=== PATIENT | female | born 1985 | race Caucasian/White ===

== ENCOUNTER 2020-11-01 21:24 | Emergency (ER) | payer OTHER, SELFPAY ==
[2020-11-01 21:25] VITALS: BP 134/74; PULSE 98; RESP 18; TEMP 36.6; O2SAT 98; BMI 25.0
--- NOTE | 2020-11-01 21:38 | ED.DCSUM_ITS ---
History of Present Illness Chief Complaint: Edema Informant: Patient Narrative: 85-year-old female presenting with left leg swelling from the left knee down for the last 5 days. She states that she feels a little bit of pain in the anterior medial aspect of the upper calf. Patient has no history of DVT. She denies medical medical problems. She states that she has had swelling in her right leg in the past but no longer has this. She does not have chest pain, palpitations, shortness of breath. No history of injury or trauma. Past Medical History - Allergies and Home Meds Allergies/Adverse Reactions: Allergies amoxicillin Allergy (Verified 11/01/20 21:29) PT UNSURE OF REACTION cefaclor [From Ceclor] Allergy (Verified 11/01/20 21:29) PT UNSURE OF REACTION cephalexin [From Keflex] Allergy (Verified 11/01/20 21:29) Hives Penicillins Allergy (Verified 11/01/20 21:29) PT UNSURE OF REACTION Sulfa (Sulfonamide Antibiotics) Allergy (Verified 11/01/20 21:29) Shortness of breath lidocaine Adverse Reaction (Verified 11/01/20 21:29) PT UNSURE OF REACTION Primary Care Physician: NOT,DEFINED [NON-STAFF] - Prior records reviewed: Yes Past Medical History: None Surgical History: noncontributory Lives: Spouse/ Significant Other Alcohol: None Drugs: None Review of Systems General: Denies: Chills, Fever, Sweats Eyes: Denies: Visual changes - bilaterally, Diplopia ENT: Denies: Rhinorrhea, Sore throat Cardiovascular: Denies: Chest pain, Palpitations Respiratory: Denies: Dyspnea, Cough, Dyspnea on exertion Gastrointestinal: Denies: Abdominal pain, Nausea, Vomiting, Diarrhea, Melena, Hematochezia Genitourinary: Denies: Dysuria, Hematuria, Frequency Musculoskeletal: Reports: Swelling - Left lower leg swelling, Extremity Pain - Left lower leg pain Skin: Denies: Rash, Wounds Neurological: Denies: Headache, Weakness, Numbness Psych: Denies: Depression, Anxiety Physical Exam Vital Signs/Narrative: Vital Signs Temp Pulse Resp BP Pulse Ox 11/01/20 21:25 97.9 F 98 18 134/74 H 98 General: Well nourished, No Acute Distress Head: Normocephalic, Atraumatic Eyes: Perrl, EOMI ENT: Moist mucous membranes, No rhinorrhea Cardiovascular: Regular rate, Regular rhythm Respiratory: No distress, CTA bilaterally Extremities: Edema - 1+ pitting edema left lower extremity Skin: Normal color, No rash. Negative for: Cyanosis, Diaphoresis, Rash Neurological: Alert, Oriented x3, Cranial nerves II-XII grossly intact Psychological: Normal affect, Normal Mood Diagnostic/Tx/Re-eval - Medical Decision Making 35-year-old female presenting with left leg swelling. She does not have a h istory of DVT or trauma. She states she is very active and works out 3 times a week. She is not describe any injury. Patient had DVT study performed which was negative for DVT. Patient counseled on ice, compression, elevation. She will follow-up with her PCP to ensure resolution. Patient stable discharge at this time. Impression: 1. Left lower extremity edema ED Disposition - Plan for ED Patient: Disposition: Home or Assisted Living Instructions: ED Peripheral Edema, Unilateral Referrals: NOT,DEFINED [NON-STAFF] -
--- NOTE | 2020-11-01 21:40 | US_ITS ---
STUDY: VENOUS DOPPLER ULTRASOUND - LEFT LOWER EXTREMITY REASON FOR EXAM: Female, 35 years old. LT LOWER LEG SWELLING X 3 DAYS TECHNIQUE: Ultrasound evaluation of the deep vein system to include vasquez-scale imaging and compression was performed. Vasquez-scale imaging and Doppler sonographic evaluation, including duplex spectral analysis and qualitative color flow sonography, was performed. COMPARISON: None. FINDINGS: Common Femoral Vein: Normal compression, spontaneity and augmentation. Normal color Doppler. Common Femoral Vein/Greater Saphenous Junction: Normal compression, spontaneity and augmentation. Normal color Doppler. Deep Femoral Vein: Normal compression, spontaneity and augmentation. Normal color Doppler. Femoral Proximal: Normal compression, spontaneity and augmentation. Normal color Doppler. Femoral Middle: Normal compression, spontaneity and augmentation. Normal color Doppler. Femoral Distal: Normal compression, spontaneity and augmentation. Normal color Doppler. Popliteal Vein: Normal compression, spontaneity and augmentation. Normal color Doppler. Posterior Tibial Vein: Normal compression, spontaneity and augmentation. Normal color Doppler. Peroneal Vein: Normal compression, spontaneity and augmentation. Normal color Doppler. US/Venous Duplex Imag/Limited/Uni IMPRESSION: Normal venous Doppler ultrasound of the lower extremity. Electronically Signed: Arvin King MD at 22:35 EST , Service support ,
== END 2020-11-01 22:31 | disposition home or self-care (01) ==
PROVIDERS: Emergency Provider Student in an Organized Health Care Education/Training Program; PCP Family Medicine
DX: R60.0 Localized edema (principal); Z88.0 Allergy status to penicillin; Z88.1 Allergy status to other antibiotic agents; Z88.2 Allergy status to sulfonamides; M79.89 Other specified soft tissue disorders
CPT/HCPCS: 93971; 99282; A4216

== ENCOUNTER → 2020-11-03 14:02 | Outpatient (CLI) | payer OTHER, SELFPAY ==
[2020-11-01 21:25] VITALS: BMI 25.0
[2020-11-03 15:45] LABS: Absolute Lymphocyte Count 1.62 X10^3/uL (0.83-4.51); Absolute Neutrophil Count 3.6 X10^3/uL (2.0-7.7); Basophil# 0.03 X10^3/uL; Basophil% 0.5 % (0-1); Eosinophil# 0.09 X10^3/uL; Eosinophils% 1.5 % (0-5); Hematocrit 39.3 % (37-47); Hemoglobin 13.2 g/dL (12.0-15.0); Lymphocyte # 1.62 X10^3/ul (4.0); Lymphocyte % 27.8 % (19-41); Mean Corp Hgb Conc 33.6 g/dL (32-36); Mean Corpuscular Hgb 32.2 pg (27.0-32.0); Mean Corpuscular Volume 95.9 fL (81-99); Mean Platelet Vol. 9.2 fl (6.2-12.0); Monocyte# 0.44 X10^3/uL; Monocyte% 7.6 % (0-10); NRBC Flagged by Analyzer 0 % (0-5); Neutrophil # 3.59 X10^3/uL (2.7-7.7); Neutrophil % 61.7 % (47-70); Platelet Count 276 K/mm3 (150-450); RBC Distribution Width CV 11.3 % (11.6-14.6); RBC Distribution Width SD 39.9 fl (35.1-43.9); White Blood Count 5.8 K/mm3 (4.4-11.0)
[2020-11-03 16:16] LABS: ALB/GLOB Ratio 1.1 RATIO (0.9-2.4); AST(SGOT) 12 U/L (15-37); Alanine Aminotransfer ALT/SGPT 22 U/L (13-56); Albumin, Serum 3.7 g/dL (3.2-5.0); Alkaline Phosphatase 71 U/L (45-117); Anion Gap 6 (5-15); BUN 19 mg/dL (7-18); BUN/Creat Ratio 24.3 RATIO (10-20); Calcium,Total 8.4 mg/dL (8.5-10.1); Chloride 105 mmol/L (98-107); Creatinine, Serum 0.78 mg/dL (0.55-1.02); EST Glomerular Filtration Rate 88 mL/min (>60); Est Glom Filt Rate - Afr Amer 106 mL/min (>60); Globulin 3.3 g/dL (2.2-4.2); Glucose 107 mg/dL (74-106); Potassium 3.5 mmol/L (3.5-5.1); Sodium Level 139 mmol/L (136-145); Thyroid Stim Hormone (TSH) 0.74 uIU/mL (0.358-3.74)
== END ==
PROVIDERS: PCP Family Medicine; Visit Provider Family Medicine
DX: M79.89 Other specified soft tissue disorders (principal)
CPT/HCPCS: 36415; 80053; 84443; 85025

== ENCOUNTER → 2020-11-08 14:23 | Outpatient (CLI) | payer OTHER, SELFPAY ==
[2020-11-01 21:25] VITALS: BMI 25.0
--- NOTE | 2020-11-08 14:25 | US_ITS ---
STUDY: ULTRASOUND OF THE FEMALE PELVIS - COMPLETE REASON FOR EXAM: Female, 35 years old. LT LEG SWELLING LMP: 11/02/2020 TECHNIQUE: Transabdominal real-time exam with grayscale image documentation. TECHNICAL QUALITY: Adequate. COMPARISON: None. FINDINGS: The uterus is anteverted and is in a midline position. The uterus measures 8.5 x 4.5 x 3.4 cm. Normal uterine cervix. The endometrium measures 4 mm in thickness, and is hyperechoic. There is no demonstrated endometrial mass. There is no demonstrated myometrial mass. I.U.D. - The patient does not have an I.U.D. The right ovary is visualized. The right ovary measures 2.6 x 2.3 x 1.8 cm. There is no right ovarian cyst or ovarian mass. There is no visualized right adnexal mass or complex lesion. There is normal arterial and normal venous vascularity. The left ovary is visualized. The left ovary measures 2.5 x 2.6 x 2.4 cm. There is no left ovarian cyst or ovarian mass. There is no visualized left adnexal mass or complex lesion. There is normal arterial and normal venous vascularity. There is no fluid in the cul-de-sac. The pre void volume of the bladder was 360 ml. Polycystic ovary disease: No. US/Pelvic (Non ) IMPRESSION: Normal female pelvis. Electronically Signed: Poppy Rojo MD at 17:06 EST , Service support ,
== END ==
PROVIDERS: PCP Family Medicine; Referring Provider Family Medicine; Visit Provider Family Medicine
DX: M79.89 Other specified soft tissue disorders (principal)
CPT/HCPCS: 76856

== ENCOUNTER → 2020-11-24 14:14 | Outpatient (CLI) | payer OTHER, SELFPAY ==
[2020-11-01 21:25] VITALS: BMI 25.0
--- NOTE | 2020-11-24 14:20 | CT_ITS ---
STUDY: CT LEFTLOWER EXTREMITY WITHOUT CONTRAST REASON FOR EXAM: Female, 35 years old. LYMPHEDEMA, LUMP ON LT LOWER CALF, LEG SWELLING RADIATION DOSAGE (If Supplied By Facility): CTDIvol = ( 15.35 ) mGy, DLP = ( 1501.26 ) mGycm TECHNIQUE: Thin section transaxial imaging of the ankle was obtained, with sagittal and coronal reconstructed images. Individualized dose optimization techniques were used for this CT. COMPARISON: None. Hip findings: Normal femoral head, neck, intertrochanteric region and visualized proximal femur. Normal acetabulum. Normal hip joint. Normal visualized superior and inferior pubic rami and ischial tuberosities. Normal hip joint without articular joint space narrowing. Normal acetabulum. Normal labrum. Normal femoral head. Normal femoral neck and intratrochanteric region. Normal gluteus minimus, medius and iliopsoas tendons and distal insertions. Normal superior and inferior pubic rami. Normal pubic symphysis. Normal ischial tuberosity. Normal origin of the hamstring tendons. Normal visualized iliac wing, sacroiliac joint, and sacral ala. Normal visualized soft tissue structures of the pelvis. Knee findings: Normal medial femoral condyle and medial tibial plateau. There is preservation of the articular joint space of the medial knee compartment. Normal lateral femoral condyle and lateral tibial plateau. There is preservation of the articular joint space of the lateral knee compartment. Normal proximal tibiofibular articulation. There is no joint effusion. There is no demonstrated abnormal enhancement. The quadriceps tendon is grossly normal. The patellar tendon is grossly normal. Normal Hoffa''s fat pad. No suspicious masses. A 1 cm lymph node is present in the subcutaneous fat of the posterior medial aspect of the upper one third catheter/proximal one third tibial shaft region. Mild subcutaneous edema is present on the medial side of the calf. No focal fluid collections are seen. No intramuscular abscess. Ankle findings: Normal visualized distal tibia and fibula. Normal tibiotalar articulation and talar dome. Normal talus, calcaneus, navicular and cuboid tarsal bones. Normal subtalar, talonavicular and calcaneocuboid articulations. Normal navicular-cuneiform, cuneiform tarsal bones and intercuneiform articulations. Normal tarsometatarsal articulations and visualized metatarsi. Mild subcutaneous edema is present around the ankle and visualized aspects of the foot. CT/Extremity Lower WITH Contrast IMPRESSION: 1. No suspicious masses. 2. A 1 cm lymph node is present in the subcutaneous fat of the posterior medial aspect of the upper one third catheter/proximal one third tibial shaft region. Mild subcutaneous edema is present on the medial side of the calf. No focal fluid collections are seen. No intramuscular abscess. Electronically Signed: Cornell Nguyen MD at 23:29 EST , Service support ,
== END ==
PROVIDERS: PCP Family Medicine; Referring Provider Family Medicine; Visit Provider Family Medicine
DX: I89.0 Lymphedema, not elsewhere classified (principal)
CPT/HCPCS: 73701; Q9967

== ENCOUNTER 2020-12-26 16:20 | Outpatient (RCR) | payer OTHER, SELFPAY ==
[2020-12-26 14:33] VITALS: BMI 25.9
[2020-12-26 16:28] LABS: Bacteria 0 SEEN /hpf (None Seen); Mucous, Urine 0 SEEN /hpf (<or=2+); Red Blood Cells-Urine 0 SEEN /hpf (0-5); Squamous Epithelial Cells - UA 0 SEEN /hpf (5-10); White Blood Cells 0 SEEN /hpf (0-5)
[2020-12-26 17:05] LABS: Color, Urine Yellow (Yellow); Glucose, Dipstick Normal (Normal); Ketone-Dipstick Negative (Negative); Leukocyte Esterase-Dipstick Negative /ul (Negative); Nitrite-Dipstick Negative (Negative); Occult Blood-Urine Negative /ul (Negative); Protein-Dipstick Negative (Negative); Urine Bilirubin Dipstick Negative (Negative); Urine Clarity Clear (Clear); Urine Urobilinogen Normal (Normal)
== END 2020-12-26 18:00 | disposition home or self-care (01) ==
LOC: LAB 16:20
PROVIDERS: Referring Provider Internal Medicine; Visit Provider Internal Medicine
DX: R35.8 Other polyuria (principal); R60.0 Localized edema
CPT/HCPCS: 81001

== ENCOUNTER 2021-01-16 13:00 | Outpatient (RCR) | payer OTHER, SELFPAY ==
[2020-12-26 14:33] VITALS: BP 124/67; PULSE 67; RESP 18; TEMP 36.9
--- NOTE | 2020-12-29 12:35 | PN.PCM_ITS ---
(1) Edema of both lower legs Status: Chronic Code(s): R60.0 - Localized edema (2) Venous (peripheral) insufficiency Status: Suspected Code(s): I87.2 - Venous insufficiency (chronic) (peripheral) Type of Wound Date of Service: 01/04/21 Chief Complaint: Chronic BL pitting edema of both legs ever since she had her second child. History of Wound: Di presents to the [facility] today to be evaluated for lymphedema. She recently saw a physician at [facility] wbout edema of her legs which has been presents since .He told her she had lymphedema and he wanted t o enroll her in a study he was doing. He wanted to do a test where she would have needles placed in her toes and contrast injected. She is seeking a second opinion. The edema is pitting and is worst at the end of the day. It increases when the weather is hot and when she is on her feet all day. It goes down over night when her legs are elevated. She is wearing tight compression stockings to help with the edema. Her legs feel tight and painful at the end of the day. She denies any hx of kidney disease. She also denies any hx of DVT/VTE. There is no FH of VTE or kidney disease/nephrotic S. She works out regularly at [employer] and she is in good physical condition. She tells me that her legs swelled during her . She has not had a UA done. She denies orthopnea, dyspnea on exertion, palpitations, chest pain, flank pain, dysuria, calf pain other than at the end of the day. - Physical Exam Vital Signs Temp Pulse Resp BP 98.5 F 67 18 124/67 H 12/26/20 14:33 12/26/20 14:33 12/26/20 14:33 12/26/20 14:33 General: Alert, Oriented x3, Cooperative, No apparent distress, Well developed, Well nourished, - HEENT: Atraumatic, PERRLA, EOMI, Normocephalic Oral: Moist Mucosa, No Gingival or Mucosal Lesions/ Ulcerations Neck: Supple, No JVD, Trachea Midline, Thyroid Normal Size and Texture, - - Carotids have brisk upstroke and good pulse volume bilaterally Lungs: Clear to auscultation, Normal air movement, No rhonchi, No wheeze, No rales - Not tachypneic, no conversational dyspnea Cardiovascular: Regular rate, Regular Rhythm, Normal S1, Normal S2, No murmurs, No rub noted, No Gallop Abdomen: Bowel Sounds Present, Soft, Non Tender, Non-Distended Extremities: No clubbing, No cyanosis, Edema, Peripheral Pulses Normal, - - ankle and pretibial edema of both lower extremities and it is pitting BL. Skin: No rashes, No breakdown, - - No wounds Wound Measurements and Assessment WC - Nurse 1 - General Ulcer Measurement Start: 12/26/20 14:33 Freq: Status: Active Protocol: Activity Type Activity Date Activity User E-Sign Co-Sign Detail Recorded Client Recorded Date Recorded By Document 12/26/20 14:33 DL [id number] 12/26/20 14:56 DL 12/26/20 14:33 Wound Center Nurse 1 [Ulcer Assessment] Lymphedema -Current Size (cm) - Length 0 -Current Size (cm) - Width 0 -Current Size (cm) - Depth 0 -Total Square Cm 0 -Photo Taken Yes -Exudate Amt None Present -Granulation Amt Large (67-100%) -Granulation Quality Linn -Necrosis Amt None Present (0 %) -Structure Exposed N/A -Texture (Amena-wound Skin Appearance) No Abnormality -Moisture (Amena-wound Skin Appearance No Abnormality ) -Color (Amena-wound Skin Appearance) No Abnormality -Temperature (Amena-wound Skin No Abnormality Appearance) (Pt Warm) -Tenderness on Palpation (Amena-wound No Skin Appearance) -Foul Odor after Cleansing No [Edema Assessment] -Right Calf (cm) 34.4 -Right Ankle (cm) 21 -Left Calf (cm) 34.5 -Left Ankle (cm) 22.5 WC - Nurse 2 - General Ulcer CM Notes Start: 12/26/20 14:33 Freq: Status: Active Protocol: Activity Type Activity Date Activity User E-Sign Co-Sign Detail Recorded Client Recorded Date Recorded By Document 12/26/20 15:35 MW [id number] 12/26/20 15:43 MW 12/26/20 15:35 Wound Center Nurse 2 [Procedure/Treatment] Lymphedema -Time 15:41 -Correct Patient Yes -Correct Side, Site, Position Yes -Correct Procedure Yes -Procedure Performed No [See Physician Procedure note for Specifics] Pain Scale: 0-10 Numeric [Pain] -Is Patient Pain Free? Yes - Nurse 3 - General Ulcer D/C NN Start: 12/26/20 14:33 Freq: Status: Active Protocol: Activity Type Activity Date Activity User E-Sign Co-Sign Detail Recorded Client Recorded Date Recorded By Document 12/26/20 15:50 MW [id number] 12/26/20 16:03 MW 12/26/20 15:50 -Is Patient Pain Free? Yes Teaching: Wound Center [Wound Center Education] (Items with an * have Printed Materials Available- Please identify what is given to patient under the Teaching materials given to patient and caregiver Section. Diagnostic Tests Ordered -Person Taught Patient -Teaching Method Discussion -Response to teaching Verbalize understanding - Visit Discharge [Visit Discharge Information] -Discharge Condition Stable -Ambulatory Status Ambulatory -Transportation Private Auto -Accompanied by self -Medication Reconcilliation completed No & provided to patient/care provider -Clinical Summary of Care Provided Yes Debridement Note Post-Debridement Measurements/Treatment - Nurse 2 - General Ulcer CM Notes Start: 12/26/20 14:33 Freq: Status: Active Protocol: Activity Type Activity Date Activity User E-Sign Co-Sign Detail Recorded Client Recorded Date Recorded By Document 12/26/20 15:35 MW [id number] 12/26/20 15:43 MW 12/26/20 15:35 Wound Center Nurse 2 Lymphedema -Time 15:41 -Correct Patient Yes -Correct Side, Site, Position Yes -Correct Procedure Yes -Procedure Performed No Pain Scale: 0-10 Numeric Is Patient Pain Free? Yes - Nurse 3 - General Ulcer D/C NN Start: 12/26/20 14:33 Freq: Status: Active Protocol: Activity Type Activity Date Activity User E-Sign Co-Sign Detail Recorded Client Recorded Date Recorded By Document 12/26/20 15:50 MW [id number] 12/26/20 16:03 MW 12/26/20 15:50 Is Patient Pain Free? Yes Teaching: Wound Center Diagnostic Tests Ordered -Person Taught Patient -Teaching Method Discussion -Response to teaching Verbalize understanding - Visit Discharge Discharge Condition Stable Ambulatory Status Ambulatory Transportation Private Auto Accompanied by self Medication Reconcilliation completed & No provided to patient/care provider Clinical Summary of Care Provided Yes Assessment/Plan Assessment: 1. Chronic bilateral pitting edema both lower extremities. 2. Suspected venous insufficiency Plan: 1. Continue use of compression stockings, salt restriction, elevation of her legs when possible. 2. Check a UA looking for proteinuria. 3. Schedule for arterial studies and venous studies of both lower extremities. 4. Return to clinic following completion of the arterial and venous studies. Office Visits / Consults: [id number] OV L3 Est
--- NOTE | 2021-01-10 12:47 | ART_ITS ---
Reason For Study: Lymphedema Procedure A bilateral lower extremity continuous wave Doppler with analog waveform analysis,segmental pressures,and ankle brachial indexes without exercise. Left Segmental Pressures Left brachial= 108mmHg. Left posterior tibial artery = 148mmHg. Left dorsalis pedis artery = 147mmHg. Right Segmental Pressures Right brachial= 112mmHg. Right posterior tibial artery = 137mmHg. Right dorsalis pedis artery = 139mmHg. Indices The right ankle brachial index by the posterior tibial artery is 1.22. The right ankle brachial index by the dorsalis pedis is 1.24. The left ankle brachial index by the posterior tibial artery is 1.32. The left ankle brachial index by the dorsalis pedis is 1.31. Interpretation Summary Triphasic Doppler waveforms are noted at ankle level bilaterally. Pulse-volume recordings appear satisfactory at all levels bilaterally, including low-thigh, calf, ankle, and digital levels. Resting ankle-brachial indices are normal bilaterally. There is no evidence of significant arterial occlusive disease in the lower extremities bilaterally. Ordering Physician: Marysol Jamil Referring Physician: Marysol Jamil Performed By: Lavern Ji RDCS/RVT
--- NOTE | 2021-01-10 12:47 | VDLE_ITS ---
Reason For Study: Lymphedema RIGHT LEFT GSV is normal. GSV is normal. CFV is compressible, spontaneous, phasic, CFV is compressible, spontaneous, phasic, competent and demonstrates normal competent, and demonstrates normal augmentation. augmentation. FV is compressible, spontaneous, phasic, FV is compressible, spontaneous, phasic, competent and demonstrates normal competent and demonstrates normal augmentation. augmentation. POP V is compressible, spontaneous, phasic, POP V is compressible, spontaneous, phasic, competent and demonstrates normal competent and demonstrates normal augmentation. augmentation. T/P Trunk is compressible. T/P Trunk is compressible. PTV is compressible. PTV is compressible. RT PerV is compressible. LT PerV is compressible. SFJ is competent and measures 0.41cm x 0.43 SFJ is competent and measures 0.47cm x 0.41 cm. cm. GSV proximal thigh measures 0.44cm x 0.45 cm. GSV proximal thigh measures 0.41cm x 0.42 cm. GSV at knee measures 0.32cm x 0.32 cm. GSV at knee measures 0.36cm x 0.36 cm. GSV is competent throughout. GSV is competent throughout. SSV proximal calf is competent and measures SSV proximal calf is competent and measures 0.21cm x 0.22 cm. 0.39cm x 0.42 cm. Procedure Exam performed in department. Interpretation Summary Deep veins of the lower extremities are bilaterally patent and compressible segmentally. There is no evidence of deep vein thrombosis on either side. Valvular competence appears intact within the proximal deep venous systems bilaterally. The great saphenous veins appear bilaterally patent and compressible segmentally. Sapheno-femoral junctions are bilaterally competent . Valvular competence appears to be intact segmentally within the great saphenous veins bilaterally. Small saphenous veins are patent and competent bilaterally. Ordering Physician: Marysol Jamil Referring Physician: Claribel Guevara Performed By: Lavern Ji, TRELL, RVT
[2021-01-16 13:14] VITALS: BP 111/72; PULSE 78; RESP 18; TEMP 37.6; BMI 25.9
--- NOTE | 2021-01-16 15:53 | PCM.WC.PN ---
(1) Edema of both lower legs Status: Chronic Code(s): R60.0 - Localized edema (2) Venous (peripheral) insufficiency Status: Ruled-out Code(s): I87.2 - Venous insufficiency (chronic) (peripheral) (3) Lymphedema Status: Acute Code(s): I89.0 - Lymphedema, not elsewhere classified Type of Wound Date of Service: 01/16/21 Chief Complaint: Chronic BL pitting edema of both legs ever since she had her second child. History of Wound: Di presents to the [facility] today to be evaluated for lymphedema. She recently saw a physician at [facility] wbout edema of her legs which has been presents since .He told her she had lymphedema and he wanted to enroll her in a study he was doing. He wanted to do a test where she would have needles placed in her toes and contrast injected. She is seeking a second opinion. The edema is pitting and is worst at the end of the day. It increases when the weather is hot and when she is on her feet all day. It goes down over night when her legs are elevated. She is wearing tight compression stockings to help with the edema. Her legs feel tight and painful at the end of the day. She denies any hx of kidney disease. She also denies any hx of DVT/VTE. There is no FH of VTE or kidney disease/nephrotic S. She works out regularly at [employer] and she is in good physical condition. She tells me that her legs swelled during her . She has not had a UA done. She denies orthopnea, dyspnea on exertion, palpitations, chest pain, flank pain, dysuria, calf pain other than at the end of the day. Progress of Wound: There was no evidence of deep vein thrombosis. Valvular competence appeared intact within the proximal deep vein system bilaterally. The venous Doppler studies showed the deep veins of the lower extremities to be bilaterally patent and compressible segmentally. Arterial study showed no evidence of significant arterial occlusive disease in the lower extremities bilaterally. She had a lymph study at [facility] and there was no tracer present in the groin BL indicating decreased lymphatic flow. She has an appt to follow up at [facility] in the next 2 weeks. She denies any fever, chills or sweats. She continues to shave her legs and has cut her self a few times. She continues to work out regularly and she is roman catholic about wearing the compression hose. She has never been fitted for compression hose. She has seen the PT at [facility] that treats lymphedema but she is not doing manual lymph pumping. The therapist told her to come back if she wants to learn how to do the MLP. She is using Cerave to moisturize her legs. - Physical Exam Vital Signs Temp Pulse Resp BP 99.6 F H 78 18 111/72 01/16/21 13:14 01/16/21 13:14 01/16/21 13:14 01/16/21 13:14 Wound Measurements and Assessment WC - Nurse 1 - General Ulcer Measurement Start: 12/26/20 14:33 Freq: Status: Active Protocol: Activity Type Activity Date Activity User E-Sign Co-Sign Detail Recorded Client Recorded Date Recorded By Document 01/16/21 13:14 DL [id number] 01/16/21 13:17 DL 01/16/21 13:14 Wound Center Nurse 1 [Edema Assessment] -Right Calf (cm) 34 -Right Ankle (cm) 20.3 -Left Calf (cm) 34 -Left Ankle (cm) 21.3 The swelling originally started in the RLE and in October the left LE became edematous as well. The swelling is pitting. She denies any hx of lymphedema in her family. The swelling started after . Swelling improves overnight with elevation. Swelling increases with hot days in the summer. She is tearful today. She has done a lot of reading about lymphedema and she did not want to hear she has Lymphedema. She knows that it can be progressive. She also knows that no treatment has been shown to be universally effective. She is aware that options include compression stockings, manual lymphatic pump, intermittent pneumatic pump, Tacrolimus topically, surgery. Surgery is the most recent tx. She does not know what the treatment will be in the research study being done at the [facility]. She is making a list of questions to ask at her next appt at [facility]. Debridement Note Post-Debridement Measurements/Treatment WC - Nurse 2 - General Ulcer CM Notes Start: 12/26/20 14:33 Freq: Status: Active Protocol: Activity Type Activity Date Activity User E-Sign Co-Sign Detail Recorded Client Recorded Date Recorded By Document 12/26/20 15:35 MW [id number] 12/26/20 15:43 MW 12/26/20 15:35 Wound Center Nurse 2 Lymphedema -Time 15:41 -Correct Patient Yes -Correct Side, Site, Position Yes -Correct Procedure Yes -Procedure Performed No Pain Scale: 0-10 Numeric Is Patient Pain Free? Yes - Nurse 3 - General Ulcer D/C NN Start: 12/26/20 14:33 Freq: Status: Active Protocol: Activity Type Activity Date Activity User E-Sign Co-Sign Detail Recorded Client Recorded Date Recorded By Document 12/26/20 15:50 MW [id number] 12/26/20 16:03 MW 12/26/20 15:50 Is Patient Pain Free? Yes Teaching: Wound Center Diagnostic Tests Ordered -Person Taught Patient -Teaching Method Discussion -Response to teaching Verbalize understanding WC - Visit Discharge Discharge Condition Stable Ambulatory Status Ambulatory Transportation Private Auto Accompanied by self Medication Reconcilliation completed & No provided to patient/care provider Clinical Summary of Care Provided Yes No debridement was completed today Assessment/Plan Active Problems Edema of both lower legs (Chronic) Lymphedema (Acute) Assessment: 1. 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 2. venous insufficiency and nephrotic S. Have been ruled out. Plan: 1. Continue use of compression stockings, salt restriction, elevation of her legs when possible. Do not try diuretics. I recommended she go to [facility] and be measured for compression stockings and use the highest compression she can tolerate. 2. Return to [facility] at [facility] and have her instruct in Manual lymphatic pumping/wrapping. 3. Do not shave legs and avoid injuries to the legs to prevent injury that can lead to infection and worsening lymphedema. 4. Avoid hot tubs, hot showers, hot baths, hot climates. 5. Continue the Cerave twice a day to keep the legs well moisturized so they do not crack open. If she gets an opening in the skin of the LE's and it becomes red, warm to touch, more swollen or painful go to a doctor and get antibiotics EMANI. 6. Keep follow up appt at the [facility]. 7. Keep weight WNL for height and continue regular exercise. 8. I gave her my cell phone number and asked her to call me if she had questions or there was anything we could do to help her. Office Visits / Consults: [id number] OV L2 Est
== END 2021-01-24 23:59 ==
LOC: WC 13:00
PROVIDERS: PCP Family Medicine; Referring Provider Internal Medicine; Visit Provider Internal Medicine
DX: I89.0 Lymphedema, not elsewhere classified (principal); R60.0 Localized edema
CPT/HCPCS: 93923; 93970; 99203; 99213; G0463

== ENCOUNTER 2021-01-23 14:00 | Outpatient (RCR) | payer OTHER, SELFPAY ==
--- NOTE | 2020-12-12 09:31 | HP.OTEVAL_ITS ---
Patient's Visit Information RICHARD GILLESPIE is a 35 year old F, referred to Occupational Therapy by Dr. Claribel Guevara MD, with a diagnosis of LE lymphedema. Date of Evaluation: 12/05/20 Occupational Therapist: Chetna Gomez, LUIS CARLOS/Yamila, CHT - Subjective This 35 year old female was seen for OT eval with dx of lymphedema-. swelling has been a problem for a while. pt states while with her first child she had swelling (child is 11 years old now) pt states while in the hospital her leg swelling went down and stayed down until she got with her. 2nd (child now 8 years) swelling did not go way- pt is using compression socks and will use an michael wrap and put smaller sized shoes on in attempts to keep swelling down. Pt is very active and participates in cross fit. - Lymphedema (Circumferential Measure) Mid-foot: right 23cm left 22.5cm Ankle: right 23.5cm left 23 cm Lower calf: right 23cm left 27c, Largest calf: right 35cm left 36cm Below knee: right 31cm left 32cm - Lower Limb Functional Index Lower Extremity Functional Score: 80 - Goals Demonstrate a 20% reduction in edema by d/c: Yes Demonstrate adequate knowledge of self-bangaging by 1st week: Yes Demonstrate adequate knowledge of self-massage by 2nd week: Yes Demonstrate adequate knowledge skin care/prec by 2nd week: Yes Demonstrate adequate knowledge therapeutic exercises by d/c: Yes Select approp compression garment w/donning/care/wear by d/c: Yes Voice need to replace compression garment every 4-6mo by dc: Yes - Rehabilitation General Assessment: Pt demo with primary lymphedema stage II. Pt demo a need for skilled OT services to ed. pt on lymphedema mtg. Pt is mtg with compression socks and wraps- Therapist ed pt on alternatives to mtg her swelling, skin care and beneficial ex. pt was receptive to compression alternatives and possibly using her compression socks while exercising. Pt demo understanding of compression garment use and HEP. pt may benefit from compression pump to assist in mtg as this has been difficult for pt to mtg the last 11 years. Rehabilitation Potential: Questionable - Anticipated Interventions Education re Diagnosis, Manual Lymph Drainage, Education re Life-long lymphedema Management, Education re Self-Bandaging Techniques, Education re Skin Care and Precautions, Education re Self Massage Techniques, Education re Correct Donning Tech,Care&Wearing Sched Comp Garments, Home Program - Visit Plan TEXT: Thank you for the opportunity to evaluate your patient. For Medicare and Medicare HMO plans, please review the plan of care and approve it. It will need to be FAXED BACK to us at [phone] for Medicare purposes. Please let me know if there are questions or concerns regarding this plan of care. Physician Signature: Date :
--- NOTE | 2021-04-04 11:55 | HP.OT.NRP ---
RICHARD GILLESPIE was seen in my office for initial evaluation on 12/05/20. The following Plan of Care was established for this patient: Anticipated Interventions: Education re Diagnosis, Manual Lymph Drainage, Education re Life-long lymphedema Management, Education re Self-Bandaging Techniques, Education re Skin Care and Precautions, Education re Self Massage Techniques, Education re Correct Donning Tech,Care&Wearing Sched Comp Garments, Home Program This patient was last seen in our office 01/23/21. Pertinent comments regarding their Occupational therapy will appear below: pt was seen for 2 OT visits with dx of lymphedema. pt demo understanding of using her compression garments, self manual lymph drainage massage and exercises to stimulate circulation. pt has not returned and at last visit therapist felt pt would benefit from home lymphedema pump as the flexitouch. Due to time lapse in therapy services pt d/c at this time. At this point I will be discontinuing this patient from occupational therapy. I would be happy to see this patient again in the future if found appropriate by the physician. Thank you! Chetna Gomez, OTR/L, CHT
== END 2021-01-23 19:00 | disposition home or self-care (01) ==
LOC: OT 14:00
PROVIDERS: PCP Family Medicine; Referring Provider Family Medicine; Visit Provider Family Medicine
DX: I89.0 Lymphedema, not elsewhere classified (principal)
CPT/HCPCS: 97140; 97166

== ENCOUNTER → 2021-08-16 11:58 | Outpatient (CLI) | payer OTHER, SELFPAY ==
[2021-08-16 15:44] LABS: Absolute Lymphocyte Count 1.73 X10^3/uL (0.83-4.51); Absolute Neutrophil Count 3.6 X10^3/uL (2.0-7.7); Basophil# 0.05 X10^3/uL; Basophil% 0.8 % (0-1); Eosinophil# 0.07 X10^3/uL; Eosinophils% 1.2 % (0-5); Hematocrit 40.5 % (37-47); Hemoglobin 13.6 g/dL (12.0-15.0); Lymphocyte # 1.73 X10^3/ul (0.83-4.51); Lymphocyte % 28.6 % (19-41); Mean Corp Hgb Conc 33.6 g/dL (32-36); Mean Corpuscular Volume 95.3 fL (81-99); Mean Platelet Vol. 9.5 fl (6.2-12.0); Monocyte# 0.58 X10^3/uL; Monocyte% 9.6 % (0-10); NRBC Flagged by Analyzer 0 % (0-5); Neutrophil # 3.56 X10^3/uL (2.7-7.7); Platelet Count 266 K/mm3 (150-450); RBC Distribution Width CV 11.4 % (11.6-14.6); RBC Distribution Width SD 39.7 fl (35.1-43.9); Red Blood Count 4.25 M/mm3 (4.2-5.4)
[2021-08-16 15:53] LABS: Anion Gap 5 (5-15); BUN 22 mg/dL (7-18); BUN/Creat Ratio 24.6 RATIO (10-20); Calcium,Total 9.4 mg/dL (8.5-10.1); Chloride 107 mmol/L (98-107); Creatinine, Serum 0.89 mg/dL (0.55-1.02); EST Glomerular Filtration Rate 75 mL/min (>60); Est Glom Filt Rate - Afr Amer 91 mL/min (>60); Glucose 98 mg/dL (74-106); Potassium 5.2 mmol/L (3.5-5.1); Sodium Level 137 mmol/L (136-145)
== END ==
PROVIDERS: PCP Family Medicine; Referring Provider Family Medicine; Visit Provider Family Medicine
DX: Z01.818 Encounter for other preprocedural examination (principal)
CPT/HCPCS: 36415; 80048; 85025

== ENCOUNTER 2021-09-18 09:00 | Outpatient (RCR) | payer OTHER, SELFPAY ==
--- NOTE | 2021-05-09 08:18 | HP.PTEVAL_ITS ---
Patient's Visit Information RICHARD GILLESPIE is a 36 year old F referred to Physical Therapy by Yohan Patel PA-C with a diagnosis of Right Elbow. Date of Evaluation: 05/09/21 Physical Therapist: Stacy Celaya DPT - Visit Plan Frequency: 2x /Week Duration: 4 Weeks Plan: Focus on ROM only until return to [facility]- Paraffin as modality - Subjective Patient reports that she broke her elbow- obstacle course racing- 8 foot fall- 2.5 weeks ago. Finished the race and a few days later they made her go to the [facility]- had x-ray and MRI- of the elbow- Lig and tendon sprain and strain- and a broken bone. The pain is along the medial portion of the forearm and could not move the ring and pinky fingers. Humerus is broken and medial epicondyle was displaced (x-ray) and but is healing and the lateral condyle (MRI) had a contusion with small fracture. Had a hard cast and sling that was removed on Friday and put her in the brace. The pain is getting better. Worst: 2/10 Agg: when she takes her brace off and bend it in a funky way- reaching over her head but thats better. Eases: Ibuprofen Best: 0/10. Describes the pain as sharp shooting- did have some dull ache but thats improving. The pain is along the forearm on the medial side. Right hand dominate. Does have decreased finger dexterity of the pinky and ring finger and hadoop infrastructure architect strength. No radiating pain- No SIMENTAL, blurred vision, dizziness or lightheadness. Very activity- Crossfit- 4 days a week at [facility]- was told no Crossfit- she is working out her legs and core- she is modifying and doing legs, cardio and core. 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 Goes back to May 30- ROM only for 4 weeks. Sleep: not disturbed at this point. Brace all the time including sleeping. Brace is unlocked. PMHx: lymphedema bilateral LE (compression stockings), following up with plastic surgeons for her LE. Meds: none. - Objective Posture: FH, RS- guarding of the right UE- can correct with verbal cues but does not maintain. Palpation: tender along medial epicondyle and posterior elbow. ROM: Shoulder: WFL, Elbow: Flexion: 115 degrees, Extn: 10 degrees from neutral, Supination: full, Pronation: 30 degrees- pain at all end ranges but empty end feel. Wrist: WFL. Strength: Elbow/Shoulder: not tested, Drum Stenciler: Left: 80, Right: 60 Pinch: Right: 9 Left: 10 all in lbs of force. Sensation: WFL - Goals Goal 1:: Patient will be I with HEP and progression Goal Time Frame: 4-6 Weeks Goal 2:: Patient will demo full AROM of the elbow Goal Time Frame: 4-6 Weeks Goal 3:: Patient will maintain proper posture t/o tx session to demo increased scap s/s Goal Time Frame: 4-6 Weeks - Rehabilitation Potential Physical Therapy Diagnosis: Patient presents s/p fall with elbow and humeral fractures- leading to decreased ROM, strength and muscular endurance leading to poor posture and increased pain and inability to perform ADL's. Rehabilitation Potential: Fair - Anticipated Interventions Patient/Client Instruction: Educate patient on: Benefits of Fitness Program Therapeutic Exercise to Include: Strength training, Endurance training, Coordination, Body mechanics, Postural training, Flexibilty training, Neuromotor development, Passive ROM, Active ROM, Dynamic Lumbar Stabilization, Scapular Strength/Stabilization Comment: as per MD recommendation TENS: Yes Cryotherapy (ice pack, ice massage): Yes Thermo therapy (hot pack): Yes Ultrasound (thermal/non thermal): No Paraffin bath: Yes Thank you for the opportunity to evaluate your patient. For Medicare and Medicare HMO plans, please review the plan of care and approve it. It will need to be FAXED BACK to us at [phone] for Medicare purposes. For Medicare only, by signing this I certify the plan of care. Please let me know if there are questions or concerns regarding this plan of care. Physician Signature: Date:
--- NOTE | 2021-05-29 10:01 | HP.PTREVAL ---
Yohan Patel PA-C, It has been my pleasure to treat RICHARD GILLESPIE over the last 6 visits for Right Elbow. Please see the progress note below for an update on the physical therapy plan of care! Subjective: Has stopped wearing the brace on Friday- due to feeling like it was limiting her ROM- does wear it when she was riding a bike and the gym. Is not sleeping with the brace. Goes back to [place] on Friday- is able to carry a little bucket in the barn. No more than 4-5/10 pain. Objective/Function: Posture: good throughout. Palpation: tender along medial epicondyle and posterior elbow. ROM: Shoulder: WFL, Elbow: Palm Up: 130 degrees Hammer Curl: 145 degrees Extn: 5 degrees from neutral, Supination: full, Pronation: full Wrist: WFL. Strength: Elbow/Shoulder: not tested, Deputy Manager: Left: 65, Right: 60 Pinch: Right: 10 Left: 11 all in lbs of force. Sensation: WFL Plan Plan: 05/29/2021: Goes to [place] Friday- continue current POC until then- possible progression as allowed by MD. Focus on ROM only until return to MD (june 01) Paraffin as modality Balance/Gait/Functional tests - Balance/Special Test Scores Quick DASH Score: 6.8175 Goals Goal 1:: Patient will be I with HEP and progression Goal Time Frame: 4-6 Weeks Goal 2:: Patient will demo full AROM of the elbow Goal Time Frame: 4-6 Weeks Goal 3:: Patient will maintain proper posture t/o tx session to demo increased scap s/s Goal Time Frame: 4-6 Weeks Anticipated Interventions Patient/Client Instruction: Educate patient on: Benefits of Fitness Program Therapeutic Exercise to Include: Strength training, Endurance training, Coordination, Body mechanics, Postural training, Flexibilty training, Neuromotor development, Passive ROM, Active ROM, Dynamic Lumbar Stabilization, Scapular Strength/Stabilization Comment: as per MD recommendation TENS: Yes Cryotherapy (ice pack, ice massage): Yes Thermo therapy (hot pack): Yes Ultrasound (thermal/non thermal): No Paraffin bath: Yes Please do not hesitate to contact me at [phone] by phone or if you have questions or concerns regarding this new plan of care! Sincerely, Stacy Celaya, MICKIET
--- NOTE | 2021-06-28 10:24 | HP.PTREVAL ---
Yohan Patel PA-C, It has been my pleasure to treat RICHARD GILLESPIE over the last 13 visits for Right Elbow. Please see the progress note below for an update on the physical therapy plan of care! Subjective: Pt. reports overall doing well. She has been tolerating all of her exercises and stretching without issues. Pt. reports being 85% better. Pt. still reports some weakness, but is getting back to most activities without issues. Objective/Function: ROM: R elbow: Pt. has full motion with self over pressure into both flexion and extension and with active motion. She does report stiffness into both regions, especially after going into the opposite motion. MMT: 5/5 throughout without increase in symptoms throughout shoulder and elbow. Pt. has slight tenderness with firm palpation to proximal aspect of olecranon process, but minimal. She is back to most activities. She is hopeful to get back into CrossFit activities. I talked to her about focusing on slow progression to increase tolerance and to increase tissue tolerance/strength. Pt. consents. Plan Plan: Pt. to see physician next week. At this point in time I do not believe she needs to be in PT, she is able to self progress at this point in time. I will put her case on hold until she sees physician to get full clearance. Balance/Gait/Functional tests - Balance/Special Test Scores Quick DASH Score: 2.2725 Goals Goal 1:: Patient will be I with HEP and progression Goal Time Frame: 1 Week Goal 2:: Patient will demo full AROM of the elbow Goal Time Frame: 4-6 Weeks Goal Progress: Goal Met Goal 3:: Patient will maintain proper posture t/o tx session to demo increased scap s/s Goal Time Frame: 4-6 Weeks Goal Progress: Goal Met Anticipated Interventions Patient/Client Instruction: Educate patient on: Benefits of Fitness Program Therapeutic Exercise to Include: Strength training, Endurance training, Coordination, Body mechanics, Postural training, Flexibilty training, Neuromotor development, Passive ROM, Active ROM, Dynamic Lumbar Stabilization, Scapular Strength/Stabilization Comment: as per MD recommendation TENS: Yes Cryotherapy (ice pack, ice massage): Yes Thermo therapy (hot pack): Yes Ultrasound (thermal/non thermal): No Paraffin bath: Yes Please do not hesitate to contact me at [phone] by phone or if you have questions or concerns regarding this new plan of care! Sincerely, MICKIE MorganT
--- NOTE | 2021-07-20 07:47 | HP.OTEVAL_ITS ---
Patient's Visit Information RICHARD GILLESPIE is a 36 year old F, referred to Occupational Therapy by Yohan Patel PA-C, with a diagnosis of lymphedema. Date of Evaluation: 07/16/21 Occupational Therapist: Chetna Gomez, VIKTORIYAR/L, CHT - Subjective This 36 year old female was seen due to left arm swelling- pt dx with lymphedema in past and has been wrapping her arm to get swelling down and has compression garment on order until she gets arm sleeve- Pt arrives for tx of left UE edema. - Lymphedema (Circumferential Measure) MCP: right 20 left 19cm Wrist: right 15cm left 15cm Lower forearm: right 17 left 19 Largest forearm: right 24 left 24cm Elbow: right 24cm left 24cm Largest humerus: right 29cm left 28cm Axcillary: right 33 left 31 - Goals Demonstrate a 20% reduction in edema by d/c: Yes Demonstrate adequate knowledge of self-bangaging by 1st week: Yes Demonstrate adequate knowledge of self-massage by 2nd week: Yes Demonstrate adequate knowledge skin care/prec by 2nd week: Yes Demonstrate adequate knowledge therapeutic exercises by d/c: Yes Select approp compression garment w/donning/care/wear by d/c: Yes Voice need to replace compression garment every 4-6mo by dc: Yes - Rehabilitation General Assessment: pt demo with swelling in left UE following a bee sting, swelling is worse at night and she has concerns she is not doing mtg swelling correctly. pt demo need for skilled OT services 2-3 visits to ed. pt on mtg of UE lymphedema. pt agree to POC. Due to pts young age and fair success on mtg lymphedema pt would benefit from compression pump for life time mtg. Rehabilitation Potential: Good - Anticipated Interventions Education re Diagnosis, Manual Lymph Drainage, Education re Life-long lymphedema Management, Education re Self-Bandaging Techniques, Education re Skin Care and Precautions, Education re Self Massage Techniques, Education re Correct Donning Tech,Care&Wearing Sched Comp Garments, Home Program, Other - Visit Plan Frequency: 1x/Week Duration: 3 Weeks TEXT: Thank you for the opportunity to evaluate your patient. For Medicare and Medicare HMO plans, please review the plan of care and approve it. It will need to be FAXED BACK to us at [phone] for Medicare purposes. Please let me know if there are questions or concerns regarding this plan of care. Physician Signature: Date:
--- NOTE | 2021-11-29 09:36 | HP.OT.NRP ---
RICHARD GILLESPIE was seen in my office for initial evaluation on 07/16/21. The following Plan of Care was established for this patient: Initial Frequency: 1x/Week Initial Duration: 3 Weeks Plan: cont with use of compression garment Anticipated Interventions: Education re Diagnosis, Manual Lymph Drainage, Education re Life-long lymphedema Management, Education re Self-Bandaging Techniques, Education re Skin Care and Precautions, Education re Self Massage Techniques, Education re Correct Donning Tech,Care&Wearing Sched Comp Garments, Home Program, Other This patient was last seen in our office 09/18/21. Pertinent comments regarding their Occupational therapy will appear below: pt seen for 4 visit for dx of lymphedema- pt underwent sx for re-routing of vascular system in LE- pt rosalina. fair- rec's use of toe caps to assist in foot and toe swelling- pt was receptive- due to time lapse in services pt d/c At this point I will be discontinuing this patient from occupational therapy. I would be happy to see this patient again in the future if found appropriate by the physician. Thank you! Chetna Gomez, OTR/L, CHT
== END 2021-09-18 19:00 | disposition home or self-care (01) ==
LOC: OT 09:00
PROVIDERS: PCP Family Medicine; Referring Provider Physician Assistant Surgical; Visit Provider Physician Assistant Surgical
DX: S42.441D Displaced fracture (avulsion) of medial epicondyle of right humerus, subsequent encounter for fracture with routine healing (principal); X58.XXXD Exposure to other specified factors, subsequent encounter
CPT/HCPCS: 97110; 97140; 97161; 97164; 97166; 97530